=== PATIENT | female | born 1955 | race Caucasian/White ===

== ENCOUNTER 2022-08-21 12:41 | Outpatient (RCR) | payer MEDICARE, SELFPAY | END 2023-02-17 23:59 | disposition home or self-care (01) | LOC: CCIC 12:41 | PROVIDERS: PCP Family Medicine; Visit Provider Internal Medicine Hematology & Oncology | DX: C50.912 Malignant neoplasm of unspecified site of left female breast (principal); Z17.0 Estrogen receptor positive status [ER+]; Z79.811 Long term (current) use of aromatase inhibitors; Z51.81 Encounter for therapeutic drug level monitoring; R23.2 Flushing; N95.2 Postmenopausal atrophic vaginitis | CPT/HCPCS: 99212; 99214 ==

== ENCOUNTER 2023-05-17 08:12 | Outpatient (RCR) | payer MEDICARE, SELFPAY | END 2023-11-13 23:59 | disposition home or self-care (01) | LOC: CCIC 08:12 | PROVIDERS: PCP Family Medicine; Visit Provider Nurse Practitioner Family | DX: C50.912 Malignant neoplasm of unspecified site of left female breast (principal); Z17.0 Estrogen receptor positive status [ER+]; Z79.811 Long term (current) use of aromatase inhibitors; Z51.81 Encounter for therapeutic drug level monitoring; R23.2 Flushing; N95.2 Postmenopausal atrophic vaginitis | CPT/HCPCS: 99212; 99214 ==

== ENCOUNTER 2023-08-28 14:47 | Outpatient (CLI) | payer MEDICARE, SELFPAY ==
--- NOTE | 2023-08-28 15:00 | CRLHL7_ITS ---
For Patients: As a result of the Century Cures Act, medical imaging exams and procedure reports are released immediately into your electronic medical record. You may view this report before your referring provider. If you have questions, please contact your health care provider. DXA BONE MINERAL DENSITY STUDY Current height (in): 62.0. Weight (lb): 186.0. Menopause age: 53. Ethnicity: White. Reason for exam: senior care AI use; monitor osteopenia/osteoporosis. 1. Have you had a previous hip or vertebral fracture? No. 2. Have you had any fractures during your adult life which did not result from significant trauma (e.g., auto accident)? No. 3. Did either of your parents have a hip fracture? No. 4. Do you smoke? No. 5. Have you ever taken Glucocorticoids? No. 6. Do you have rheumatoid arthritis? No. 7. Do you have secondary osteoporosis? No. 8. Do you drink 3 or more alcoholic drinks per day? No. 9. Are you being treated for osteoporosis? No. 10. Have you ever taken any of the following medications: Actonel, Evista, Fosamax, Miacalcin, Reclast, Boniva, Forteo, HRT (i.e. estrogen/hormone therapy), Protelos, Prolia, Vitamin D, Calcium, other ??? please specify. ANSWER: Yes, vitamin D, calcium, HRT. 11. Do you have any of the following medical conditions: Anorexia or bulimia, asthma or emphysema, end stage renal disease, hyperparathyroidism, any seizure disorders, cancer, inflammatory bowel diseases, hysterectomy, other ??? please specify. ANSWER: Yes, asthma or emphysema, other; history of breast cancer. 12. What was your maximum height (inches)? 62. 13. Do you perform weight bearing exercise regularly? Yes. 14. Do you regularly consume dairy products? Yes. 15. Do you drink caffeinated beverages? Yes. 16. At what age did your period start? 11. 17. Are you premenopausal? No. 18. How many full-term pregnancies have you had? 2. 19. Have you ever missed your period for more than 6 months in a row (not including or menopause)? No. TECHNIQUE: Bone mineral density study was performed using the [employer]. FINDINGS: The results of the study expressed as bone mineral density (BMD) are as follows: Lumbar spine L1 to L3: BMD: 1.109 g/cm2. T-score: 0.8. Z-score: 2.9. Neck Left: BMD: 0.988 g/cm2. T-score: 1.2. Z-score: 3.0. Right: BMD: 0.942 g/cm2. T-score: 0.8. Z-score: 2.6. Total Left: BMD: 1.187 g/cm2. T-score: 2.0. Z-score: 3.5. Right: BMD: 1.201 g/cm2. T-score: 2.1. Z-score: 3.6. IMPRESSION: Normal bone density. *Comparison exams done prior to 04/2020 were performed on different unit, [email or web address]. COMPARISON: Compared with scan of 08/09/2021, the bone mineral density has decreased by 3.1 percent at the spine and increased by 0.2 percent at the hip. Sherif Pham M.D. Diagnostic Radiologist [email or web address] Transcribed: 9:12 am DW/Dictated by: Sherif Pham MD @ 08/29/2023 6:20:00 AM (Electronically Signed)
== END 2023-08-28 14:48 | disposition home or self-care (01) ==
LOC: RAD 14:48
PROVIDERS: PCP Family Medicine; Visit Provider Nurse Practitioner Family
DX: C50.912 Malignant neoplasm of unspecified site of left female breast (principal); Z51.81 Encounter for therapeutic drug level monitoring; Z79.811 Long term (current) use of aromatase inhibitors
CPT/HCPCS: 77080

== ENCOUNTER 2024-05-07 14:15 | Outpatient (RCR) | payer MEDICARE, SELFPAY ==
--- NOTE | 2023-12-11 08:48 | ONC.NURNOTE ---
Request for Breast Cancer Index testing and supporting records faxed to [phone].
== END 2024-05-12 23:59 | disposition home or self-care (01) ==
LOC: CCIC 14:15
PROVIDERS: PCP Family Medicine; Visit Provider Physician Assistant
DX: C50.912 Malignant neoplasm of unspecified site of left female breast (principal); Z17.0 Estrogen receptor positive status [ER+]; Z79.811 Long term (current) use of aromatase inhibitors; I89.0 Lymphedema, not elsewhere classified; N61.0 Mastitis without abscess; N89.8 Other specified noninflammatory disorders of vagina
CPT/HCPCS: 99212; 99214; 99215; G0463

== ENCOUNTER 2024-11-12 14:42 | Outpatient (RCR) | payer MEDICARE, SELFPAY | END 2025-05-11 23:59 | disposition home or self-care (01) | LOC: CCIC 14:42 | PROVIDERS: PCP Family Medicine; Visit Provider Physician Assistant | DX: C50.912 Malignant neoplasm of unspecified site of left female breast (principal); Z17.0 Estrogen receptor positive status [ER+]; I89.0 Lymphedema, not elsewhere classified | CPT/HCPCS: 99214; G0463 ==

== ENCOUNTER 2025-10-08 09:16 | Outpatient (CLI) | payer MEDICARE, SELFPAY ==
--- NOTE | 2025-10-08 10:28 | P.ANES_ITS ---
Anesthesia Charges Start Date/Time Anesthesia Start Date: 10/08/25 Anesthesia Start Time: 09:58 Stop Date/Time Anesthesia Stop Date: 10/08/25 Anesthesia Stop Time: 10:21 Summary Extremes of Age - Over 70 or under 1: CAKE WASHER Coding CPT Codes CPT Codes: ANES LWR INTST NDSC NOS - [id number] ([id number]) P2 - PATIENT W/MILD SYST DISEASE, QK - COIL PLACER 2-4 CNCRNT ANES PROC Additional Codes: Summary - Extremes of Age - Over 70 or under 1: CAKE WASHER ([id number])
--- NOTE | 2025-10-08 10:28 | W.ANESCHARGE ---
Anesthesia Charges Start Date/Time Anesthesia Start Date: 10/08/25 Anesthesia Start Time: 09:58 Stop Date/Time Anesthesia Stop Date: 10/08/25 Anesthesia Stop Time: 10:21 Summary Extremes of Age - Over 70 or under 1: PENCIL INSPECTOR Coding CPT Codes CPT Codes: ANES LWR INTST NDSC NOS - [id number] ([id number]) P2 - PATIENT W/MILD SYST DISEASE, QK - REFRIGERATING ENGINEER HEAD 2-4 CNCRNT ANES PROC Additional Codes: Summary - Extremes of Age - Over 70 or under 1: PENCIL INSPECTOR ([id number])
--- NOTE | 2025-10-08 11:07 | P.ANES_ITS ---
Anesthesia Charges Start Date/Time Anesthesia Start Date: 10/08/25 Anesthesia Start Time: 09:58 Stop Date/Time Anesthesia Stop Date: 10/08/25 Anesthesia Stop Time: 10:21 Summary Extremes of Age - Over 70 or under 1: MDA Coding CPT Codes CPT Codes: ANES LWR INTST NDSC NOS - [id number] ([id number]) P2 - PATIENT W/MILD SYST DISEASE, QK - SAMPLE STEAMER 2-4 CNCRNT ANES PROC, QX - ALMOND GRINDER SVC W/ MD MED DIRECTION Additional Codes: Summary - Extremes of Age - Over 70 or under 1: JELANI ([id number])
--- NOTE | 2025-10-08 11:07 | W.ANESCHARGE ---
Anesthesia Charges Start Date/Time Anesthesia Start Date: 10/08/25 Anesthesia Start Time: 09:58 Stop Date/Time Anesthesia Stop Date: 10/08/25 Anesthesia Stop Time: 10:21 Summary Extremes of Age - Over 70 or under 1: MDA Coding CPT Codes CPT Codes: ANES LWR INTST NDSC NOS - [id number] ([id number]) P2 - PATIENT W/MILD SYST DISEASE, QK - MITTEN SEWER 2-4 CNCRNT ANES PROC, QX - MANAGER ORACLE SVC W/ MD MED DIRECTION Additional Codes: Summary - Extremes of Age - Over 70 or under 1: JELANI ([id number])
== END 2025-10-08 09:17 | disposition home or self-care (01) ==
LOC: OP CLINIC 09:17
PROVIDERS: PCP Family Medicine; Visit Provider Internal Medicine Gastroenterology
DX: Z12.11 Encounter for screening for malignant neoplasm of colon (principal); D12.2 Benign neoplasm of ascending colon; K57.30 Diverticulosis of large intestine without perforation or abscess without bleeding
CPT/HCPCS: 00811; 00812; 45385; 99100; J2704